=== PATIENT | female | born 1950 | race Caucasian/White ===

== ENCOUNTER 2018-07-22 12:30 | Emergency (ER) | payer MEDICARE, OTHER ==
--- NOTE | 2018-07-22 12:49 | EDM.PDOC ---
ED HPI GENERAL MEDICAL PROBLEM - General Chief Complaint: General Stated Complaint: Left rib pain Time Seen by Provider: 07/22/18 12:40 Source of Information: Reports: Patient, Old Records ([facility] chart/EMR) History Limitations: Reports: No Limitations - History of Present Illness INITIAL COMMENTS - FREE TEXT/NARRATIVE: The patient drove herself to the emergency room via private automobile for evaluation of sharp 10/10 left sided lateral chest wall/rib pain after she tripped over her daughter's dog at her own home at about 10:00 hours this morning. She did take 1300 mg of Tylenol after the above accident with no improvement of her symptoms. She has not injured this area in the past. No history of head injury, loss of consciousness, change in mental status, diplopia , visual changes, paresthesias, neurological deficits, neck/back pain, or other complaints or injuries. The patient denies any chest pain/pressure, heart flutter, dizziness, orthostasis, orthopnea, diaphoresis, paresthesias, recent decreased exercise tolerance, or any other anginal-type symptoms. No recent history of abdominal pain, heartburn, nausea, diarrhea, melena, gross hematochezia, or any food intolerance, including fatty foods, etc.. She denies any gross hematuria, colic, or other UTI symptoms. The patient also denies any recent fever, cough, wheezing, dyspnea, etc.. home Onset: Today, Sudden Onset Date: 07/22/18 Onset Time: 10:00 Duration: Constant Location: Reports: Chest. Denies: Head, Face, Neck, Abdomen, Back, Pelvis, Upper Extremity, Left, Upper Extremity, Right, Lower Extremity, Left, Lower Extremity, Right, Radiates to Quality: Reports: Sharp Severity: Severe Improves with: Reports: Rest Worsens with: Reports: Movement Context: Reports: Trauma Associated Symptoms: Reports: Chest Pain. Denies: Confusion, Cough, Diaphoresis , Fever/Chills, Headaches, Loss of Appetite, Malaise, Nausea/Vomiting, Rash, Seizure, Shortness of Breath, Syncope, Weakness Treatments BLADDER TRIMMER: Reports: Acetaminophen Left upper rib Pain Score (Numeric/FACES): 10 - Related Data Allergies Allergy/AdvReac Type Severity Reaction Status Date / Time Penicillins Allergy Cannot Verified 07/22/18 12:37 Remember Ncqyfvn-Eoa-Urk Reductase Allergy Cannot Verified 07/22/18 12:37 Inhibitor Remember Home Meds: Home Meds Levothyroxine 125 mcg PO DAILY 07/22/18 [History] PARoxetine HCl [Paroxetine HCl] 20 mg PO DAILY 07/22/18 [History] Past Medical History HEENT History: Reports: Cataract, Impaired Vision, Other (See Below). Denies: Allergic Rhinitis, Glaucoma, Hard of Hearing, Macular Degeneration, Otitis Media , Retinal Detachment Other HEENT History: Beginning cataracts with no surgery to this point. Patient wears glasses. Cardiovascular History: Reports: High Cholesterol. Denies: Afib, Aneurysm, Arrhythmia, Blood Clots/VTE/DVT, CAD, Cardiomyopathy, Heart Failure, Heart Murmur, Hypertension, OR, Syncope Other Cardiovascular History: Hyperlipidemia currently treated with diet with previous statin intolerance. Respiratory History: Reports: Asthma. Denies: Bronchitis, Recurrent, COPD, Intubation, Previous, PE, Pneumonia, Recurrent, Pneumothorax, Pulmonary Fibrosis , Sleep Apnea, TB Gastrointestinal History: Reports: GERD. Denies: Bowel Obstruction, Celiac Disease, Cholelithiasis, Chronic Constipation, Chronic Diarrhea, Colon Polyp, Diverticulosis, Fecal Incontinence, Gastritis, GI Bleed, Hepatitis, Hiatal Hernia, Inflammatory Bowel Disease, Irritable Bowel Syndrome, Jaundice, Pancreatitis Genitourinary History: Denies: Acute Renal Failure, Chronic Renal Insuffiency, Renal Calculus, STD, Urinary Incontinence, UTI, Recurrent INTERNATIONAL ORGANIZER History: Reports: . Denies: Dysfunctional Uterine Bleeding, Endometriosis, Fibroids, Spontaneous : 2 Para: 2 LMP (Approximate): Other (See Below) Other INTERNATIONAL ORGANIZER History: Menopause in her late 40s. Full term without complications during pregnancies or deliveries Musculoskeletal History: Reports: Arthritis, Fracture, Osteoarthritis, Other ( See Below). Denies: Amputation, Back Pain, Chronic, Gout, Neck Pain, Chronic, Osteoporosis, RA, SLE Other Musculoskeletal History: Radial tear of the right medial meniscus by MRI in 2018. Left wrist fracture with surgery as below in 2006. Neurological History: Reports: None. Denies: Cerebral Aneurysms, Concussion, CVA, Headaches, Chronic, Head Trauma, Migraines, MS, Neuropathy, Diabetic, Neuropathy, Peripheral, Parkinson's, Seizure, TIA, Vertigo Psychiatric History: Reports: Anxiety, Depression. Denies: Abuse, Victim of, ADD, ADHD, Addiction, Dementia, Psych Hospitalization(s), PTSD, Suicide Attempt , Suicidal Ideation Endocrine/Metabolic History: Reports: Hypothyroidism, Obesity/BMI 30+. Denies: Diabetes, Gestational, Diabetes, Type I, Diabetes, Type II, Diabetes Mellitus, Type 3c, IDDM, Osteopenia, Osteoporosis Hematologic History: Reports: None. Denies: Anemia, Blood Transfusion(s), Iron Deficiency Immunologic History: Reports: None. Denies: AIDS, HIV, SLE Oncologic (Cancer) History: Reports: None. Denies: Basal Cell Carcinoma, Breast , Cervix, Colon, Hodgkin's Lymphoma, Leukemia, Lymphoma, Malignant Melanoma, Non -Hodgkin's Lymphoma, Ovarian, Squamous Cell Carcinoma, Thyroid, Uterine Dermatologic History: Reports: None. Denies: Eczema, Psoriasis, Seborrheic Dermatitis - Infectious Disease History Infectious Disease History: Reports: Chicken Pox, Measles, Mumps, Pertussis ( Whooping Cough), Shingles (Right-sided herpes zoster in her waist area 2 in her late 50s.). Denies: C-Difficile, Meningitis, Mononucleosis, MRSA, Rheumatic Fever, Rubella, Scarlet Fever, TB, VRE - Past Surgical History Head Surgeries/Procedures: Reports: None HEENT Surgical History: Reports: Oral Surgery, Other (See Below). Denies: Adenoidectomy, Cataract Surgery, Detached Retina, Eye Surgery, Laser Surgery, LASIK, Myringotomy w Tube(s), Naso-Sinus Surgery, Tonsillectomy Other HEENT Surgeries/Procedures: Thoreau teeth extraction 3 initially at age 8. Cardiovascular Surgical History: Reports: None. Denies: Varicose Respiratory Surgical History: Reports: None. Denies: Thoracentesis GI Surgical History: Reports: Colonoscopy, Other (See Below). Denies: Appendectomy, Cholecystectomy, EGD, Hernia, Abdominal, Hernia, Inguinal, Hernia Repair/Other, Polypectomy Other GI Surgeries/Procedures: Colonoscopy in about 2010. Female Surgical History: Reports: Tubal Ligation, Other (See Below). Denies : Breast Biopsy, Breast Implant, Section, D&C, Hysterectomy, Oophorectomy, Salpingo-Oophorectomy Other Female Surgeries/Procedures: Bilateral tubal ligation in about 1981. Endocrine Surgical History: Reports: Thyroid Biopsy, Other (See Below) Other Endocrine Surgeries/Procedures: Fine needle aspiration biopsy of the thyroid gland in 1981. Neurological Surgical History: Reports: None. Denies: C-Spine, Discectomy, Laminectomy, Lumbar Spine, Sacral Spine, Spinal Fusion, Thoracic Spine, Vertebroplasty Musculoskeletal Surgical History: Reports: Arthroscopic Knee, ORIF, Other (See Below). Denies: Carpal Tunnel, Ganglion Cyst, Joint Replacement, Shoulder Surgery Other Musculoskeletal Surgeries/Procedures:: Arthroscopic repair of right medial meniscal tear in 2018. Carpal tunnel release concomitant with ORIF of the left wrist fracture in 2005. Oncologic Surgical History: Reports: None Dermatological Surgical History: Reports: None - Past Imaging History Past Imaging History: Reports: Mammogram (Last mammogram in 2018.), MRI (Right knee on 08/03/17.) Social & Family History - Tobacco Use Smoking Status *Q: Never Smoker Tobacco Use Within Last Twelve Months: No Used Tobacco, but Quit: No Smoking Cessation Information Provided To Patient: No Second Hand Smoke Exposure: Yes Source of Second Hand Smoke Exposure: chews tobacco with previous cigarette use. Second Hand Smoke Education Provided: Yes - Caffeine Use Caffeine Use: Reports: Coffee (6 cups per day). Denies: Energy Drinks, Soda, Tea - Alcohol Use Alcohol Use History: Yes Days Per Week of Alcohol Use: 1 Number of Drinks Per Day: 1 Number of Drinks Per Day Comment: Usually wine coolers. No previous DWIs, problems with alcohol abuse, etc. 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 ED EXAM, GENERAL - Physical Exam Exam: See Below Exam Limited By: No Limitations General Appearance: Alert, WD/WN, No Apparent Distress Head: Atraumatic, Normocephalic. No: Facial Swelling, Facial Tenderness, Sinus Tenderness Neck: Normal Inspection, Supple, Non-Tender, Full Range of Motion. No: Lymphadenopathy (L), Lymphadenopathy (R), Thyromegaly Respiratory/Chest: No Respiratory Distress, Lungs Clear, Normal Breath Sounds, No Accessory Muscle Use. No: Chest Non-Tender (Moderate palpation pain over the lateral mid to inferior chest wall region in the anterior axillary line with no ecchymosis, swelling, crepitation, deformity, or sign of fracture), Pleural Rub, Retractions Cardiovascular: Normal Peripheral Pulses, Regular Rate, Rhythm, No Edema, No Gallop, No JVD, No Murmur, No Rub. No: Gallop/S3, Gallop/S4, Friction Rub Peripheral Pulses: 2+: Radial (L), Radial (R), Dorsalis Pedis (L), Dorsalis Pedis (R) GI/Abdominal: Normal Bowel Sounds, Soft, Non-Tender, No Organomegaly, No Distention, No Abnormal Bruit, No Mass, Pelvis Stable, Other (obese). No: Guarding (Female) Exam: Deferred Rectal (Female) Exam: Deferred Back Exam: Normal Inspection, Full Range of Motion. No: CVA Tenderness (L), CVA Tenderness (R), Muscle Spasm Extremities: Normal Inspection, Normal Range of Motion, Non-Tender, No Pedal Edema, Normal Capillary Refill. No: Claude's Sign Neurological: Alert, Oriented, CN II-XII Intact, Normal Cognition, Normal Gait, No Motor/Sensory Deficits Psychiatric: Normal Affect, Normal Mood Skin Exam: Warm, Dry, Intact, Normal Color, No Rash. No: Diaphoretic, Ecchymosis, Petechiae, Wound/Incision Lymphatic: No Adenopathy Course - Vital Signs Last Recorded V/S: Last Vital Signs Temp 36.6 C 07/22/18 12:49 Pulse 73 07/22/18 12:49 Resp 20 07/22/18 12:49 BP 106/64 07/22/18 12:49 Pulse Ox 100 07/22/18 12:49 Vital Signs - 24 hr 07/22/18 07/22/18 12:32 12:49 Temperature [ 36.6 C 36.6 C Tympanic] Pulse, 73 73 Peripheral [ Right] Respiratory 20 20 Rate Blood Pressure 105/61 106/64 [Right] O2 Sat by Pulse 100 100 Oximetry - Orders/Labs/Meds Orders: Active Orders 24 hr Category Date Time Status Ribs 2V w Chest Lt [CR] Stat Exams 07/22/18 12:49 Taken Obtain Past Medical Record [OM.PC] Routine Oth 07/22/18 12:49 Active Labs: None Meds: Medications Discontinued Medications Generic Name Dose Route Start Last Admin Trade Name Cele PRN Reason Stop Dose Admin Ketorolac Tromethamine 60 mg 07/22/18 12:50 07/22/18 13:07 Toradol IM 07/22/18 12:51 60 mg ONETIME ONE Administration - Radiology Interpretation Free Text/Narrative:: Chest x-ray, one view, with 2 lateral views of the left ribs shows evidence of a possible hairline lateral #10 rib fracture without displacement, pneumothorax , pulmonary infiltrates, cardiomegaly, CHF, etc. Mild pulmonary obstructive disease noted. Mild osteoarthritic changes. Departure - Departure Time of Disposition: 13:35 Disposition: Home, Self-Care 01 Condition: Good Clinical Impression: Peptic reflux disease, Hypothyroidism (acquired), Mixed anxiety depressive disorder Contusion of rib on left side Qualifiers: Encounter type: initial encounter Qualified Code(s): S20.212A - Contusion of left front wall of thorax, initial encounter Osteoarthritis Qualifiers: Osteoarthritis location: multiple joints Osteoarthritis type: primary Qualified Code(s): M15.0 - Primary generalized (osteo)arthritis Hyperlipidemia Qualifiers: Hyperlipidemia type: unspecified Qualified Code(s): E78.5 - Hyperlipidemia, unspecified - Discharge Information *PRESCRIPTION DRUG MONITORING PROGRAM REVIEWED*: Not Applicable *COPY OF PRESCRIPTION DRUG MONITORING REPORT IN PATIENT JERI: Not Applicable Instructions: Ketorolac injection Referrals: Elton Garcia MD [Primary Care Provider] - Forms: ED Department Discharge Additional Instructions: 1. Follow up with your regular provider in 10-14 days as needed, if symptoms persist. Bring these discharge instructions with you to that visit.. 2. Tylenol 650 mg by mouth every 4 hours and/or OTC ibuprofen 2-3 tabs by mouth every 6 hours with food as directed./needed. You may stagger these medications for 48-72 hours only, which essentially means that you are receiving a pain medication about every 2 hours. Next dose of ibuprofen in 6 hours secondary to medications given in the emergency room. 3. BenGay or equivalent, heating pad, and/or ice packs as directed. 4. Stop all tobacco exposure MIGUEL ANGEL as directed with counselling, information, etc. given 5. Immediately after this visit verify that your cellular telephone's voicemail has been activated and is empty. Also verify that your home telephone 's answering machine is operating properly and has space to receive messages. Note that it is sometimes necessary for us to be able to contact you at a later date to discuss your medical care. 6. Please remember that we are ALWAYS here for you and want to answer any questions you may have. Feel free to call the hospital any time and we call you back MIGUEL ANGEL. - Problem List & Annotations (1) Contusion of rib on left side SNOMED Code(s): 931259908 Code(s): S20.212A - CONTUSION OF LEFT FRONT WALL OF THORAX, INITIAL ENCOUNTER Status: Acute Priority: High Current Visit: No Onset Date: Annotation/Comment:: Patient agrees to IM Toradol in the emergency room with improved symptoms prior to discharge. Symptomatic relief as per discharge instructions. Cannot rule out possible distal #10 rib fracture as above with some surrounding artifactual findings, and the patient is aware of a possible rib fracture. Await official radiology report, however no change in medical treatment based on today's findings. Qualifiers: Encounter type: initial encounter Qualified Code(s): S20.212A - Contusion of left front wall of thorax, initial encounter (2) Osteoarthritis SNOMED Code(s): 708047376 Code(s): M19.90 - UNSPECIFIED OSTEOARTHRITIS, UNSPECIFIED SITE Status: Chronic Priority: Medium Current Visit: Yes Annotation/Comment:: Stable by history, including with low-dose Tylenol therapy Qualifiers: Osteoarthritis location: multiple joints Osteoarthritis type: primary Qualified Code(s): M15.0 - Primary generalized (osteo)arthritis (3) Hyperlipidemia SNOMED Code(s): 21225054 Code(s): E78.5 - HYPERLIPIDEMIA, UNSPECIFIED Status: Chronic Priority: Medium Current Visit: Yes Annotation/Comment:: Currently treated with diet with previous statin intolerance. Weight loss in moderation advisable. Continue to observe closely by her regular providers. Qualifiers: Hyperlipidemia type: unspecified Qualified Code(s): E78.5 - Hyperlipidemia , unspecified (4) Hypothyroidism (acquired) SNOMED Code(s): 381342350 Code(s): E03.9 - HYPOTHYROIDISM, UNSPECIFIED Status: Chronic Priority: Medium Current Visit: Yes Annotation/Comment:: Currently under therapy. Nonsymptomatic. (5) Mixed anxiety depressive disorder SNOMED Code(s): 209560830 Code(s): F41.8 - OTHER SPECIFIED ANXIETY DISORDERS Status: Chronic Priority: Medium Current Visit: Yes Annotation/Comment:: Stable with current medical therapy. (6) Peptic reflux disease SNOMED Code(s): 838253164 Code(s): K21.9 - GASTRO-ESOPHAGEAL REFLUX DISEASE WITHOUT ESOPHAGITIS Status: Chronic Priority: Medium Current Visit: Yes Annotation/Comment:: Stable by history with no current medications required. She was advised to use OTC Prilosec versus Pepcid, if extensive NSAID use is required. - Problem List Review Problem List Initiated/Reviewed/Updated: Yes - My Orders Last 24 Hours: My Active Orders 07/22/18 12:49 Ribs 2V w Chest Lt [CR] Stat Obtain Past Medical Record [OM.PC] Routine - Assessment/Plan Last 24 Hours: My Active Orders 07/22/18 12:49 Ribs 2V w Chest Lt [CR] Stat Obtain Past Medical Record [OM.PC] Routine Assessment:: As above Plan: As above. Extensive precautions were given to the patient, who is in agreement with the treatment plan. See Patient Instructions for further treatment and plan.
[2018-07-22] MEDS ORDERED: Ketorolac 60 MG/2 ML SDV IM ONE (12:50)
== END 2018-07-22 13:35 | disposition home or self-care (01) ==
LOC: LL.ED 12:30
DX: S20.212A Contusion of left front wall of thorax, initial encounter (principal); E78.5 Hyperlipidemia, unspecified; F41.8 Other specified anxiety disorders; E03.9 Hypothyroidism, unspecified; K21.9 Gastro-esophageal reflux disease without esophagitis; Z77.22 Contact with and (suspected) exposure to environmental tobacco smoke (acute) (chronic); E78.00 Pure hypercholesterolemia, unspecified; Z79.899 Other long term (current) drug therapy; Z88.0 Allergy status to penicillin; Z88.8 Allergy status to other drugs, medicaments and biological substances; W01.0XXA Fall on same level from slipping, tripping and stumbling without subsequent striking against object, initial encounter; Y92.009 Unspecified place in unspecified non-institutional (private) residence as the place of occurrence of the external cause
CPT/HCPCS: 71101-LT; 96372; 99283-25; J1885